=== PATIENT | female | born 1990 | race Caucasian/White ===

== ENCOUNTER 2019-08-20 22:24 | Emergency (ER) | payer OTHER ==
[~2019-08-20] VITALS: Ht 165.1 cm; Wt 66.2 kg
[2019-08-20 23:13] VITALS: BP_SYST 123
--- NOTE | 2019-08-21 01:25 | NUR ---
Pt c/o fever, breast engorgement, and burning with urinations x 3 days. pt s/p C-Sxn 2 weeks ago, but began running a temp of 102 last night. She states that she saw Dr. Benítez on Saturday and was told her surgical incision site is healing well. Pt has been taking Ibuprofen, but with no relief in s/s.
--- NOTE | 2019-08-21 01:25 | NUR ---
Patient to ER bed 04 to gown for evaluation. Side rails up. Report given to MARIA L Lyons
--- NOTE | 2019-08-21 01:35 | NUR ---
Dr. Truong at bedside.
[2019-08-21 02:52] VITALS: BP_SYST 118
--- NOTE | 2019-08-21 02:52 | NUR ---
Patient given written and verbal discharge instructions and verbalizes understanding. ER MD discussed with patient the results and treatment provided. Patient in stable condition. ID arm band removed. Rx of Keflex and Acetaminophen given. Patient educated on pain management and to follow up with PMD. Pain Scale 0/10. Opportunity for questions provided and answered. Medication side effect fact sheet provided.
== END 2019-08-21 02:52 | disposition home or self-care (01) ==
LOC: SED 22:24
DX: N39.0 Urinary tract infection, site not specified (principal); F50.9 Eating disorder, unspecified
CPT/HCPCS: 81002; 81025; 99283